=== PATIENT | female | born 1950 | race Caucasian/White ===

== ENCOUNTER 2017-02-21 08:18 | Observation (INO) | payer BC ==
[2017-02-21] VITALS (9 sets, daily range): BP systolic 99–133; BP diastolic 50–62; PULSE 61–88; RESP 16–18; TEMP 97.3–97.8; O2SAT 94–100
[~2017-02-21] VITALS: Ht 162.6 cm; Wt 55.2 kg
[2017-02-21] MEDS ORDERED: SODIUM CHLOR 0.9% 250 ML INJ 250 ML IV ONE (08:45)
[2017-02-21] MEDS ORDERED: ONDANSETRON HCL 4 MG/2 ML VIAL IV PUSH ONE ×2 (08:45→11:39)
[2017-02-21] MEDS ORDERED: MORPHINE SULFATE 4 MG/ML INJ IV PUSH ONE (08:45)
--- NOTE | 2017-02-21 08:50 | RADHPO ---
EXAM DATE/TIME: 02/21/2017 08:43 [facility] COMPARISON: No previous studies available for comparison. INDICATIONS : Right wrist pain after falling. MEDICAL HISTORY : Osteoporosis. SURGICAL HISTORY : None. ENCOUNTER: Initial ACUITY: 2 days PAIN SCORE: 6/10 LOCATION: Right wrist FINDINGS: Three view examination of the right wrist demonstrates soft tissue swelling and distal radius fractur e with mild displacement. Ulna intact. Bony mineralization is normal. CONCLUSION: Mildly displaced distal radius fracture. Geo Lopez MD on February 21, 2017 at 8:48 Board Certified Radiologist. This report was verified electronically.
[2017-02-21] MEDS ORDERED: AMLO10TA2 PO (08:54)
[2017-02-21] MEDS ORDERED: MULTTAB27 PO (08:54)
[2017-02-21] MEDS ORDERED: FOLI1CAP7 PO (08:54)
[2017-02-21] MEDS ORDERED: FOSA70TA PO (08:54)
[2017-02-21] MEDS ORDERED: METO25TA3 PO (08:54)
[2017-02-21] MEDS ORDERED: IBUP200T2 PO (08:54)
[2017-02-21] MEDS ORDERED: calicum PO (08:54)
[2017-02-21] MEDS ORDERED: TYLE325T PO (08:54)
[2017-02-21] MEDS ORDERED: PROPOFOL 200 MG/20 ML AMP IV ONE ×2 (09:00→11:39)
[2017-02-21] MEDS ORDERED: NORC5TAB PO (09:34)
--- NOTE | 2017-02-21 09:34 | PD ---
Physical Exam Date Seen by Provider: February 21, 2017 Time Seen by Provider: 09:32 Narrative The patient is a 66-year-old female who is initially seen by Dr. Thornton, please refer to initial history, physical, diagnostic evaluation, and treatment modality plan. I was asked to provide conscious sedation for right wrist reduction. Data Data Last Documented VS Vital Signs Date Time Temp Pulse Resp B/P Pulse Ox O2 Delivery O2 Flow Rate FiO2 02/21/17 09:30 16 02/21/17 09:15 99 2.00 02/21/17 08:24 97.8 68 100/52 Orders Sodium Chlor 0.9% 250 Ml Inj (Ns 250 Ml (02/21/17 08:45) Morphine Inj (Morphine Inj) (02/21/17 08:45) Ondansetron Inj (Zofran Inj) (02/21/17 08:45) Wrist, Complete ([id number]) (02/21/17 08:34) Consent (02/21/17 08:52) Propofol 200 Mg/20 Ml Inj (Diprivan 200 (02/21/17 09:00) Wrist, Limited (Ap&Lat) (02/21/17 09:29) MDM Medical Record Reviewed: Yes Supervised Visit with DAYSI: No Interpretation(s) Last Impressions Wrist X-Ray 02/21/17 0834 Signed Impressions: Service Date/Time: Tuesday, February 21, 2017 08:43 - CONCLUSION: Mildly displaced distal radius fracture. Geo Lopez MD Differential Diagnosis Differential diagnosis includes fracture, dislocation, contusion, hematoma. Narrative Course The patient was initially evaluated by the previous physician, please refer to the initial history, physical, diagnostic evaluation, treatment modality plan. I was asked to provide conscious sedation. The patient was placed on oxygen via nasal cannula, end-tidal CO2, cardiac telemetry monitoring, and with respiratory therapy, nursing staff, emergency medicine surveillance camera technician, and Dr. Thornton at bedside, the right wrist was reduced with conscious sedation. The patient was provided 100 mg of propofol with IV fluids. The patient tolerated the procedure without difficulty. There was no obvious complications. Procedures Procedure Narrative After the risks and benefits were discussed the following procedure was performed: MODERATE SEDATION: The patient was placed on a marine welder and pulse oximetry. An ambu bag and suction was immediately available at bedside. The patient was monitored by the nurse. Oxygen saturation, heart rate and blood pressure were monitored. Procedural sedation was acheived using 100 mg propofol. The patient was observed until awake and alert. Procedural Sedation time in attendance was 20 minutes. Diagnosis Primary Impression: Right wrist fracture Qualified Code: S62.101A - Right wrist fracture, closed, initial encounter Condition: Stable Fuad Pineda MD February 21, 2017 09:34
--- NOTE | 2017-02-21 09:35 | PD ---
HPI . Right wrist injury Chief Complaint: Musculoskeletal Complaint Time Seen by Provider: 08:32 Travel History International Travel<30 days: No Contact w/Intl Traveler<30days: No Traveled to known affect area: No History of Present Illness HPI Patient suffered a trip and fall last night about 9:00. She landed on an extended right hand. She states that she iced it through the night and then presented to us this morning for treatment. She denies any other associated injuries. She rates her pain as 5/10. Pain is exacerbated by movement. Pain was relieved with ice. PFSH Past Medical History Arthritis: Yes Cardiovascular Problems: Yes (HTN) Hypertension: Yes Tetanus Vaccination: < 5 Years Influenza Vaccination: No ?: Not Menopausal: Yes Tubal Ligation: Yes Past Surgical History Appendectomy: Yes Tonsillectomy: Yes Social History Alcohol Use: Yes (occas. mix drinks) Tobacco Use: Yes (1 ppd of cigs) Substance Use: No Allergies-Medications (Allergen,Severity, Reaction): Coded Allergies: No Known Allergies (Unverified , 02/21/17) Reported Meds & Prescriptions Reported Meds & Active Scripts Active [place] (Hydrocodone-Acetaminophen) 5-325 mg Tab 1-2 Tab PO Q6H PRN Reported Tylenol (Acetaminophen) 325 Mg Tab 650 Mg PO BID PRN Ibuprofen 200 Mg Tab 200 Mg PO BID PRN Multi-Day Vitamins (Multiple Vitamin) 1 Tab Tab 1 Tab PO DAILY [calicum] 600 Mg PO DAILY Folic Acid 800 Mcg Cap 800 Mcg PO DAILY Fosamax (Alendronate Sodium) 70 Mg Tab 70 Mg PO Q7D Metoprolol Tartrate 25 Mg Tab 25 Mg PO BID Amlodipine (Amlodipine Besylate) 10 Mg Tab 10 Mg PO DAILY Review of Systems Except as stated in HPI: all other systems reviewed are Neg Physical Exam Narrative GENERAL: Awake and alert and in no acute distress. SKIN: Warm and dry. HEAD: Atraumatic. Normocephalic. She is able to open her mouth fully and the uvula can be seen in its entirety. EYES: Pupils equal and round. NECK: Trachea midline. She has good flexion and extension of her neck. CARDIOVASCULAR: Regular rate and rhythm. RESPIRATORY: No accessory muscle use. MUSCULOSKELETAL: Deformity of the right wrist. Normal movement of the fingers. Normal capillary refill. NEUROLOGICAL: Awake and alert. No obvious cranial nerve deficits. Motor grossly within normal limits. Normal speech. PSYCHIATRIC: Appropriate mood and affect; insight and judgment normal. Data Data Last Documented VS Vital Signs Date Time Temp Pulse Resp B/P Pulse Ox O2 Delivery O2 Flow Rate FiO2 02/21/17 09:58 61 16 99/53 98 Room Air 02/21/17 09:15 2.00 02/21/17 08:24 97.8 Orders Sodium Chlor 0.9% 250 Ml Inj (Ns 250 Ml (02/21/17 08:45) Morphine Inj (Morphine Inj) (02/21/17 08:45) Ondansetron Inj (Zofran Inj) (02/21/17 08:45) Wrist, Complete ([id number]) (02/21/17 08:34) Consent (02/21/17 08:52) Propofol 200 Mg/20 Ml Inj (Diprivan 200 (02/21/17 09:00) Wrist, Limited (Ap&Lat) (02/21/17 09:29) Sodium Chlorid 0.9% 500 Ml Inj (Ns 500 M (02/21/17 09:45) MDM Medical Decision Making Medical Screen Exam Complete: Yes Emergency Medical Condition: Yes Differential Diagnosis Differential diagnosis of extremity trauma includes but is not limited to fracture, sprain or strain, dislocation, contusion Narrative Course Patient presents with an injury to the right wrist. She has an obvious fracture by exam. Last Impressions Wrist X-Ray 02/21/1734 Signed Impressions: Service Date/Time: Tuesday, February 21, 2017 08:43 - CONCLUSION: Mildly displaced distal radius fracture. Geo Lopez MD The x-ray was independently viewed by me. Procedures Procedure Narrative Conscious sedation and reduction were assisted by Dr. Pineda who handled the conscious sedation. Following identification of the correct patient and the correct extremity, the patient was sedated. The fracture was then reduced using traction/countertraction. Splint was applied. She had normal capillary refill of her fingers following the splint application. Postreduction film is pending. She tolerated this procedure well without complication. Physician Communication Physician Communication I spoke with Dr. Choudhury. He has given the patient the option of being transferred to [facility] for operative repair this weekend versus an elective outpatient procedure. The patient has chosen transferred to [facility]. Dr. Hernandez will admit. Diagnosis Primary Impression: Right wrist fracture Qualified Code: S62.101A - Right wrist fracture, closed, initial encounter Admitting Information Admitting Physician Requests: Admit Patient Instructions: General Instructions, RICE Therapy (ED), Wrist Fracture in Adults (DC) Med/Other Pt SpecificInfo: Prescription(s) given Condition: Stable Clair Thornton MD February 21, 2017 09:35
[2017-02-21] MEDS ORDERED: SODIUM CHLORID 0.9% 500 ML INJ 500 ML IV ONE (09:45)
--- NOTE | 2017-02-21 09:50 | RADHPO ---
EXAM DATE/TIME: 02/21/2017 09:31 [facility] COMPARISON: No previous studies available for comparison. INDICATIONS : Post reduction MEDICAL HISTORY : Osteoporosis. SURGICAL HISTORY : None. ENCOUNTER: Subsequent ACUITY: 1 day PAIN SCORE: 0/10 LOCATION: Right wrist FINDINGS: Two view examination of the right wrist demonstrates casted views of distal radius fracture. Minimal improvement of alignment. Soft tissue swelling. CONCLUSION: Slight improvement of alignment of distal radius fracture. Geo Lopez MD on February 21, 2017 at 9:48 Board Certified Radiologist. This report was verified electronically.
[2017-02-21] MEDS ORDERED: ONDANSETRON HCL 4 MG/2 ML VIAL IV PUSH PRN (10:15)
--- NOTE | 2017-02-21 10:27 | HHI.HP ---
[facility] Physician Sarbjit Mac MD Admission Diagnosis right wrist fracture Diagnoses: (1) Right wrist fracture Diagnosis: Principal Chief Complaint: pain to the right wrist after a fall Travel History International Travel<30 Days: No Contact w/Intl Traveler <30 Da: No Traveled to Known Affected Are: No History of Present Illness patient is a 66 y/o female with history of hypertension who presented to ER with worsening pain and swelling of the right wrist. she says that she fell last night after she was taking out the garbage. she landed on her right wrist .she put some ice on the wrist but the pain and swelling got worse over night which made her to come to ER today. she denies any head trauma, loss of consciousness, any prodromal symptoms before the fall or any other injuries. pain was moderate at the time of my evaluation. she denies any other symptoms. Review of Systems Musculoskeletal: COMPLAINS OF: Joint pain (right wrist) Past Family Social History Past Medical History hypertension Past Surgical History tonsillectomy appendectomy tubal ligation Reported Medications Tylenol (Acetaminophen) 325 Mg Tab 650 Mg PO BID PRN Ibuprofen 200 Mg Tab 200 Mg PO BID PRN Multi-Day Vitamins (Multiple Vitamin) 1 Tab Tab 1 Tab PO DAILY [calicum] 600 Mg PO DAILY Folic Acid 800 Mcg Cap 800 Mcg PO DAILY Fosamax (Alendronate Sodium) 70 Mg Tab 70 Mg PO Q7D Metoprolol Tartrate 25 Mg Tab 25 Mg PO BID Amlodipine (Amlodipine Besylate) 10 Mg Tab 10 Mg PO DAILY Allergies: Coded Allergies: No Known Allergies (Unverified , 02/21/17) Active Ordered Medications Current Medications Sodium Chloride (NS 250 ml Inj) 250 ml @ 250 mls/hr BOLUS ONCE IV Last administered on 02/21/17 09:14; Start 02/21/17 at 08:45; Stop 02/21/17 at 09:44 ; Status DC Morphine Sulfate (Morphine Inj) 4 mg ONCE ONCE IV PUSH Last administered on 09:15; Start 02/21/17 at 08:45; Stop 02/21/17 at 08:46; Status DC Ondansetron HCl (Zofran Inj) 4 mg ONCE ONCE IV PUSH Last administered on 09:14; Start 02/21/17 at 08:45; Stop 02/21/17 at 08:46; Status DC Propofol 100 mg 100 mg ONCE ONCE IV Last administered on 02/21/17 09:15; Start 02/21/17 at 09:00; Stop 02/21/17 at 09:01; Status DC Sodium Chloride (NS 500 ml Inj) 500 ml @ 500 mls/hr BOLUS ONCE IV Last administered on 02/21/17 09:46; Start 02/21/17 at 09:45; Stop 02/21/17 at 10:44 Family History diabetes in brother. Social History smokes a pack a day- drinks occasionally. Physical Exam Vital Signs Vital Signs Date Time Temp Pulse Resp B/P Pulse Ox O2 Delivery O2 Flow Rate FiO2 02/21/17 09:58 61 16 99/53 98 Room Air 02/21/17 09:45 62 16 02/21/17 09:30 16 02/21/17 09:15 99 2.00 02/21/17 08:45 16 02/21/17 08:24 97.8 68 16 100/52 100 Physical Exam GENERAL: This is a well-nourished, well-developed patient, in no apparent distress. SKIN: No rashes, ecchymoses or lesions. Cool and dry. HEAD: Atraumatic. Normocephalic. No temporal or scalp tenderness. EYES: Pupils equal round and reactive. Extraocular motions intact. No scleral icterus. No injection or drainage. ENT: Nose without bleeding, purulent drainage or septal hematoma. Throat without erythema, tonsillar hypertrophy or exudate. Uvula midline. Airway patent. NECK: Trachea midline. No JVD or lymphadenopathy. Supple, nontender, no meningeal signs. CARDIOVASCULAR: Regular rate and rhythm without murmurs, gallops, or rubs. RESPIRATORY: Clear to auscultation. Breath sounds equal bilaterally. No wheezes , rales, or rhonchi. GASTROINTESTINAL: Abdomen soft, non-tender, nondistended. No hepato-splenomegaly , or palpable masses. No guarding. MUSCULOSKELETAL: right wrist covered with clean dressing. NEUROLOGICAL: Awake and alert. Cranial nerves II through XII intact. Motor and sensory grossly within normal limits. Five out of 5 muscle strength in all muscle groups. Normal speech. Imaging Last Impressions Wrist X-Ray 02/21/17 0970 Signed Impressions: Service Date/Time: Tuesday, February 21, 2017 09:31 - CONCLUSION: Slight improvement of alignment of distal radius fracture. Geo Lopez MD Assessment and Plan Assessment and Plan A/P - right wrist fracture after a fall- s/p closed reduction in ER keep NPO- continue with pain control and consult ortho. -hypertension; BP on low side- hold BP meds for now and gradually start back on her home regimen if BP stable. -DVT prophylaxis- SCD's- pending the ortho evaluation. Discussed Condition With ER physician and the patient. Physician Certification 2 Midnight Certification Type: Admission for Inpatient Services Order for Inpatient Services The services are ordered in accordance with Medicare regulations or non- Medicare payer requirements, as applicable. In the case of services not specified as inpatient-only, they are appropriately provided as inpatient services in accordance with the 2-midnight benchmark. Estimated LOS (days): 2 days is the estimated time the patient will need to remain in the hospital, assuming treatment plan goals are met and no additional complications. Post-Hospital Plan: Home Problem Qualifiers (1) Right wrist fracture: Qualified Code: S62.101A - Right wrist fracture, closed, initial encounter Kenji Hernandez MD February 21, 2017 10:27
[2017-02-21] MEDS ORDERED: SODIUM CHLOR 0.9% 1000 ML INJ 1,000 ML IV SCH (10:30)
[2017-02-21 10:58] LABS: AUTOMATED NEUTROPHIL # 7.6 TH/MM3 (1.8-7.7); BASOPHIL % 0.4 % (0.0-2.0); EOSINOPHIL # 0.2 TH/MM3 (0-0.4); EOSINOPHIL % 2.2 % (0.0-4.0); HEMATOCRIT 35.6 % (35.0-46.0); HEMO FLAGS DIFF FINAL; LYMPH % 9.6 % (9.0-44.0); LYMPHOCYTE # 0.9 TH/MM3 (1.0-4.8); MEAN CELL VOLUME 97.8 FL (80.0-100.0); MEAN CORPUSCULAR HEMOGLOBIN 33.4 PG (27.0-34.0); MEAN CORPUSCULAR HGB CONC 34.2 % (32.0-36.0); MONO % 7.9 % (0.0-8.0); NEUT % 79.9 % (16.0-70.0); PLATELET COUNT 246 TH/MM3 (150-450); RED BLOOD COUNT 3.64 MIL/MM3 (4.00-5.30); RED CELL DISTRIBUTION WIDTH 12.8 % (11.6-17.2); WHITE BLOOD COUNT 9.5 TH/MM3 (4.0-11.0)
[2017-02-21 11:07] LABS: POTASSIUM 4.1 MEQ/L (3.5-5.1)
[2017-02-21 11:10] LABS: BICARBONATE 27.2 MEQ/L (21.0-32.0)
[2017-02-21 11:11] LABS: APTT (PATIENT) 23.9 SEC (24.3-30.1); PROTHROMBIN TIME - PATIENT 10.9 SEC (9.8-11.6)
[2017-02-21] MEDS: HYDROmorphone HCL PF 1 MG/ML VIAL IV PUSH PRN ×2 (11:19→16:08)
[2017-02-21] MEDS ORDERED: GENTAMICIN SULFATE 80 MG/2 ML VIAL ONE (19:36)
--- NOTE | 2017-02-21 19:45 | PD.CONS ---
cc: Dick Choudhury MD HPI Service [facility] Surgeons Consult Requested By ED staff Reason for Consult Right wrist fracture Primary Care Physician Sarbjit Mac MD Admission Diagnosis right wrist fracture Diagnoses: (1) Fracture of right distal radius Chief Complaint: Right wrist pain History of Present Illness This patient is a 66 y/o female with history of hypertension who presented to ER with worsening pain and swelling of the right wrist. She says that she fell last night after she was taking out the garbage. She landed on an outstretched right upper extremity. She put some ice on the wrist but the pain and swelling got worse over night which made her to come to ER today. She denies any head trauma, loss of consciousness, any prodromal symptoms before the fall or any other injuries. Her pain is controlled at the present time. She denies other extremity complaint. Review of Systems Reviewed and well outlined in the medical record Past Family Social History Past Medical History hypertension Past Surgical History tonsillectomy appendectomy tubal ligation Allergies: Coded Allergies: No Known Allergies (Unverified , 02/21/17) Active Ordered Medications Current Medications Medications (Trade) Dose Ordered Sig/Jyoti Route Start Time Stop Time Status Last Admin (Dilaudid Pf Inj) 0.5 mg Q4H PRN IV PUSH 02/21/17 10:15 02/21/17 16:08 Ondansetron HCl 4 mg 4 mg Q8HR PRN IV PUSH 02/21/17 10:15 (NS 1000 ml Inj) 1,000 ml @ 100 mls/hr Q10H IV 02/21/17 10:30 02/21/17 10:33 Reported Meds & Active Scripts Active Reported Tylenol (Acetaminophen) 325 Mg Tab 650 Mg PO BID PRN Ibuprofen 200 Mg Tab 200 Mg PO BID PRN Multi-Day Vitamins (Multiple Vitamin) 1 Tab Tab 1 Tab PO DAILY [calicum] 600 Mg PO DAILY Folic Acid 800 Mcg Cap 800 Mcg PO DAILY Fosamax (Alendronate Sodium) 70 Mg Tab 70 Mg PO Q7D Metoprolol Tartrate 25 Mg Tab 25 Mg PO BID Amlodipine (Amlodipine Besylate) 10 Mg Tab 10 Mg PO DAILY Family History diabetes in brother. Social History smokes a pack a day- drinks occasionally. Physical Exam Vital Signs Vital Signs Date Time Temp Pulse Resp B/P Pulse Ox O2 Delivery O2 Flow Rate FiO2 02/21/17 18:00 98.2 63 20 106/54 96 02/21/17 18:00 63 02/21/17 16:00 97.3 63 16 110/54 94 02/21/17 12:30 97.5 63 16 110/53 95 02/21/17 11:37 78 16 106/50 99 02/21/17 11:17 88 18 103/62 97 Room Air 02/21/17 09:58 61 16 99/53 98 Room Air 02/21/17 09:45 62 16 02/21/17 09:30 16 02/21/17 09:15 99 2.00 02/21/17 08:45 16 02/21/17 08:24 97.8 68 16 100/52 100 Physical Exam The right upper extremity is in a splint. She moves her fingers freely and has good capillary refill and sensation. She moves her left upper extremity and both lower extremities without restriction or pain. Neurologically no focal deficit. Laboratory Laboratory Tests Test 02/21/17 10:45 White Blood Count 9.5 Red Blood Count 3.64 Hemoglobin 12.2 Hematocrit 35.6 Mean Corpuscular Volume 97.8 Mean Corpuscular Hemoglobin 33.4 Mean Corpuscular Hemoglobin 34.2 Concent Red Cell Distribution Width 12.8 Platelet Count 246 Mean Platelet Volume 7.7 Neutrophils (%) (Auto) 79.9 Lymphocytes (%) (Auto) 9.6 Monocytes (%) (Auto) 7.9 Eosinophils (%) (Auto) 2.2 Basophils (%) (Auto) 0.4 Neutrophils # (Auto) 7.6 Lymphocytes # (Auto) 0.9 Monocytes # (Auto) 0.8 Eosinophils # (Auto) 0.2 Basophils # (Auto) 0.0 CBC Comment DIFF FINAL Differential Comment Prothrombin Time 10.9 Prothromb Time International 1.0 Ratio Activated Partial 23.9 Thromboplast Time Sodium Level 143 Potassium Level 4.1 Chloride Level 107 Carbon Dioxide Level 27.2 Anion Gap 9 Blood Urea Nitrogen 14 Creatinine 0.57 Estimat Glomerular Filtration 107 Rate Random Glucose 106 Calcium Level 8.6 Result Diagram: 02/21/17 1045 02/21/17 1045 Imaging Last 48 hours Impressions Wrist X-Ray 02/21/17 0929 Signed Impressions: Service Date/Time: Tuesday, February 21, 2017 09:31 - CONCLUSION: Slight improvement of alignment of distal radius fracture. Geo Lopez MD Wrist X-Ray 02/21/17 0834 Signed Impressions: Service Date/Time: Tuesday, February 21, 2017 08:43 - CONCLUSION: Mildly displaced distal radius fracture. Geo Lopez MD Assessment & Plan Problem List: (1) Fracture of right distal radius Assessment and Plan The findings were discussed. The options for treatment both operative and nonoperative were discussed. Recommendations are for internal fixation based upon the comminuted displaced and angulated fracture pattern. The nature of the procedure, the risks, the expected benefits, as well as the postoperative expectations were discussed with her in detail. In addition, the alternatives to treatment and risks of same were discussed. The patient acknowledges full understanding and agrees to it. Dick Choudhury MD February 21, 2017 19:45
--- NOTE | 2017-02-21 21:37 | PD.OP ---
cc: Dick Choudhury MD Operative Report Date of Surgery: February 21, 2017 Preoperative Diagnosis: (1) Fracture of right distal radius Postoperative Diagnosis: (1) Fracture of right distal radius Procedure: ORIF right distal radius with volar plating Implants used: Synthes Anesthesia: Gen. Surgeon: Dick Choudhury Blind Hanger(s): Ruthie Vernon PA-C ([place]) The surgical procedure was assisted by my physician's personal banking assistant. Her presence was necessary throughout the case for manipulation and positioning of the surgical extremity. My PA was assisting me throughout the duration of this procedure. The skill set of the physician personal banking assistant was medically necessary to complete this procedure. During the surgical case the surgical training specialist was working at the back table and the physician personal banking assistant was directly assisting me. Operation and Findings: Indications: This 66-year-old female fell last night injuring her right wrist. She sought medical treatment today at [facility]. X-rays revealed a displaced comminuted dorsally angulated distal radius fracture. Given the alternatives of the treatment she presents for ORIF. Procedure and findings: The patient was taken to the operative suite and after undergoing an adequate level of general anesthesia was kept supine on the operating table. Preoperative antibiotics consisted of Ancef 2 g IV. The right upper extend it was then prepped and draped in usual sterile fashion with Betadine. A standard FCR approach to the volar aspect of the wrist was made with incision extending from the wrist crease. This was carried down to skin and subcutaneous tense tissue with a knife. The flexor carpi radialis tendon was identified and the sheath entered. The tendon was retracted and the floor of the sheath was incised. The fracture site was then easily identified. Later was partially torn. Subperiosteal dissection was carried out exposing the fracture site. Fracture was easily reduced. A volar plate was applied. A single cortical screw was placed proximal to the fracture site in an oblong hole to allow further manipulation of the plate. A distal K wire was placed for positioning. Distal locking screws were placed and 2 rows. Proximal cortical fixation was accomplished with 3 screws proximal to the fracture site. The position of the fracture reduction and placement of the internal fixation were checked in both the AP and lateral planes with the C-arm. The wound was thoroughly irrigated. The tourniquet was released and hemostasis obtained. Incision was closed in layers utilizing 2-0 Vicryl suture on the subcutaneous tissue and 4-0 nylon on the skin. Sterile dressings were applied, the patient was placed into a splint, awakened, transferred to hospital bed and taken to the recovery room in stable condition. Estimated blood loss: Minimal Complications: None Tourniquet time: 35 minutes Dick Choudhury MD February 21, 2017 21:37
--- NOTE | 2017-02-21 21:38 | RADRPT ---
EXAM DATE/TIME: 02/21/2017 20:44 [facility] COMPARISON: WRIST RIGHT LIMITED(AP & LAT), February 21, 2017, 9:31. INDICATIONS : Right wrist fracture open reduction internal fixation. MEDICAL HISTORY : Osteoporosis. SURGICAL HISTORY : None. ENCOUNTER: Initial ACUITY: 1 day PAIN SCORE: Non-responsive. LOCATION: Right wrist FINDINGS: 2 magnified C. arm spot views are centered over the right wrist. An orthopedic plate is seen involvin g the palmar cortex of the distal radius with multiple anchoring screws. Good alignment of the distal radial fracture. CONCLUSION: Limited images as detailed above. Scotty Wise Jr., MD on February 21, 2017 at 21:36 Board Certified Radiologist. This report was verified electronically.
[2017-02-21] MEDS ORDERED: SODIUM CHLORIDE 0.9% FLUSH 10 ML FLUSH IV FLUSH PRN (21:45)
[2017-02-21] MEDS ORDERED: Post-op Orders (for Pharmacy) MISC XX ONE (21:45)
[2017-02-21] MEDS ORDERED: ACETAMINOPHEN 325 MG TAB PO PRN (21:45)
[2017-02-21] MEDS ORDERED: diphenhydrAMINE HCL 25 MG CAP PO PRN (21:45)
[2017-02-21] MEDS ORDERED: ZOLPIDEM TARTRATE 5 MG TAB PO PRN (21:45)
[2017-02-21] MEDS ORDERED: MORPHINE SULFATE 4 MG/ML INJ IV PUSH PRN (21:45)
[2017-02-21] MEDS ORDERED: MAGNESIUM HYDROXIDE SUSP 30 ML CUP PO PRN (21:45)
[2017-02-21] MEDS ORDERED: *morphine SULFATE 8 MG/ML PERIprocedure ONLY ONE ×2 (21:59→22:09)
[2017-02-21] MEDS ORDERED: DO NOT ADM ANY ANTICOAGULANT DRUGS PRN (22:00)
[2017-02-21] MEDS ORDERED: MIDAZOLAM HCL 2 MG/2 ML VIAL ONE (22:03)
[2017-02-21] MEDS: DEXT 5%-NACL 0.45% 1000 ML INJ 1,000 ML IV SCH (22:15)
[2017-02-22] MEDS: oxyCODONE/ACETAMINOPHEN 5 MG/325 MG TAB PO PRN ×5 (00:22→16:06)
[2017-02-22 04:00] VITALS: BP 105/62; PULSE 65; RESP 20; TEMP 97.4; O2SAT 98
[2017-02-22] MEDS: DEXT 5%-NACL 0.45% 1000 ML INJ 1,000 ML IV SCH ×2 (07:21→11:46)
[2017-02-22 07:40] VITALS: BP 104/50; PULSE 75; RESP 16; TEMP 96.9; O2SAT 97
[2017-02-22] MEDS ORDERED: SODIUM CHLORIDE 0.9% FLUSH 10 ML FLUSH IV FLUSH SCH (09:00)
[2017-02-22 09:10] VITALS: O2SAT 96
--- NOTE | 2017-02-22 10:41 | HHI.PR ---
Subjective Remarks Feels better. Pain is controlled by meds. No cp, sob, n/v/d/c. Feesl comfortable to go home today. Objective Vitals Vital Signs Date Time Temp Pulse Resp B/P Pulse Ox O2 Delivery O2 Flow Rate FiO2 02/22/17 07:53 Room Air 02/22/17 07:40 96.9 75 16 104/50 97 02/22/17 05:51 18 02/22/17 04:00 97.4 65 20 105/62 98 02/22/17 01:50 Nasal Cannula 2.00 02/21/17 22:54 97.7 75 16 133/60 96 02/21/17 22:30 99.0 76 16 127/56 99 Nasal Cannula 2 02/21/17 22:15 77 10 125/58 100 Nasal Cannula 2 02/21/17 22:00 77 19 133/61 99 Nasal Cannula 3 02/21/17 21:55 81 16 134/63 100 Nasal Cannula 3 02/21/17 21:54 98.9 79 15 132/68 100 Nasal Cannula 3 02/21/17 20:00 98.2 63 20 106/54 96 02/21/17 18:00 98.2 63 20 106/54 96 02/21/17 18:00 63 02/21/17 16:00 97.3 63 16 110/54 94 02/21/17 12:30 97.5 63 16 110/53 95 02/21/17 11:37 78 16 106/50 99 02/21/17 11:17 88 18 103/62 97 Room Air I/O 02/21/17 02/21/17 02/21/17 02/22/17 02/22/17 02/22/17 07:00 15:00 23:00 07:00 15:00 23:00 Intake Total 1300 ml 981 ml Output Total 50 ml Balance 1250 ml 981 ml Intake Oral 0 ml 240 ml IV Total 300 ml 741 ml Other 1000 ml Output Urine Total 0 ml Estimated Blood Loss 50 ml Other 0 ml # Voids 3 2 # Bowel Movements 0 0 Result Diagram: 02/21/17 1045 02/21/17 1045 Imaging Last Impressions Wrist X-Ray 02/21/1757 Signed Impressions: Service Date/Time: Tuesday, February 21, 2017 09:31 - CONCLUSION: Slight improvement of alignment of distal radius fracture. Geo F. Tocci, MD Objective Remarks GENERAL: This is a well-nourished, well-developed patient, in no apparent distress. SKIN: No rashes, ecchymoses or lesions. Cool and dry. HEAD: Atraumatic. Normocephalic. No temporal or scalp tenderness. EYES: Pupils equal round and reactive. Extraocular motions intact. No scleral icterus. No injection or drainage. ENT: Nose without bleeding, purulent drainage or septal hematoma. Throat without erythema, tonsillar hypertrophy or exudate. Uvula midline. Airway patent. NECK: Trachea midline. No JVD or lymphadenopathy. Supple, nontender, no meningeal signs. CARDIOVASCULAR: Regular rate and rhythm without murmurs, gallops, or rubs. RESPIRATORY: Clear to auscultation. Breath sounds equal bilaterally. No wheezes , rales, or rhonchi. GASTROINTESTINAL: Abdomen soft, non-tender, nondistended. No hepato-splenomegaly , or palpable masses. No guarding. MUSCULOSKELETAL: Right wrist covered in splint NEUROLOGICAL: Awake and alert. Cranial nerves II through XII intact. Motor and sensory grossly within normal limits. Five out of 5 muscle strength in all muscle groups. Normal speech. Procedures ORIF right distal radius with volar plating 02/[address] Kei casillas A/P Problem List: (1) Fracture of right distal radius ICD Code: S52.501A Status: Acute Assessment and Plan Right wrist fracture after a fall- s/p closed reduction in ER S/p ORIF right distal radius with volar plating 02/[address] Kei casillas Hypertension; BP on low side- hold BP meds for now and gradually start back on her home regimen if BP stable. -DVT prophylaxis- SCD's- Discussed Condition With patient,family at bedside. Stable medically. Restart BP meds if BP permits. Patient is on pain meds, an might lower BP. Rosalia Ortez MD February 22, 2017 10:41
[2017-02-22 11:51] VITALS: BP 114/64; PULSE 71; RESP 16; TEMP 96.8; O2SAT 97
--- NOTE | 2017-02-22 12:56 | PD.ORT.PN ---
Subjective Post Op Day #: 1 Subjective Remarks Patient awake and alert, has walked several times around halls. Admits right wrist pain well controlled. Ready for discharge to home today. Objective Vitals Vital Signs Date Time Temp Pulse Resp B/P Pulse Ox O2 Delivery O2 Flow Rate FiO2 02/22/17 11:51 96.8 71 16 114/64 97 02/22/17 11:45 16 02/22/17 09:10 96 21 02/22/17 07:53 Room Air 02/22/17 07:40 96.9 75 16 104/50 97 02/22/17 04:00 97.4 65 20 105/62 98 02/22/17 01:50 Nasal Cannula 2.00 02/21/17 22:54 97.7 75 16 133/60 96 02/21/17 22:30 99.0 76 16 127/56 99 Nasal Cannula 2 02/21/17 22:15 77 10 125/58 100 Nasal Cannula 2 02/21/17 22:00 77 19 133/61 99 Nasal Cannula 3 02/21/17 21:55 81 16 134/63 100 Nasal Cannula 3 02/21/17 21:54 98.9 79 15 132/68 100 Nasal Cannula 3 02/21/17 20:00 98.2 63 20 106/54 96 02/21/17 18:00 98.2 63 20 106/54 96 02/21/17 18:00 63 02/21/17 16:00 97.3 63 16 110/54 94 I/O 02/21/17 02/21/17 02/21/17 02/22/17 02/22/17 02/22/17 07:00 15:00 23:00 07:00 15:00 23:00 Intake Total 1300 ml 981 ml Output Total 50 ml Balance 1250 ml 981 ml Intake Oral 0 ml 240 ml IV Total 300 ml 741 ml Other 1000 ml Output Urine Total 0 ml Estimated Blood Loss 50 ml Other 0 ml # Voids 3 2 # Bowel Movements 0 0 Result Diagram: 02/21/17 1045 02/21/17 1045 Imaging Last Impressions Wrist X-Ray 02/21/17928 Signed Impressions: Service Date/Time: Tuesday, February 21, 2017 09:31 - CONCLUSION: Slight improvement of alignment of distal radius fracture. Geo F. Tocci, MD Procedures ORIF right distal radius with volar plating Objective Remarks RUE: splint and dressing dry and intact. freely able to move distal digits, sensation intact, no olecranon pain, NVI Assessment & Plan Ortho Post Op Day #: 1 Problem List: (1) Fracture of right distal radius Assessment and Plan ORIF right distal radius with volar plating POD #1 Clear for discharge from an orthopedic standpoint. Pain medication on chart. F/U [address] Choudhury. Non w/b RUE. Ruthie Vernon February 22, 2017 12:55
--- NOTE | 2017-02-22 13:17 | HHI.DCPOC ---
Discharge Care Plan Goals to Promote Your Health * To prevent worsening of your condition and complications * To maintain your health at the optimal level Directions to Meet Your Goals Take your medications as prescribed Follow your dietary instruction Follow activity as directed Keep your appointments as scheduled Take your immunizations and boosters as scheduled If your symptoms worsen call your PCP, if no PCP go to Urgent Care Center or Emergency Room Smoking is Dangerous to Your Health. Avoid second hand smoke Call the 24-hour hour crisis hotline for domestic abuse at Rosalia Ortez MD February 22, 2017 13:17
[2017-02-22] MEDS ORDERED: PERC5TAB12 PO (14:50)
--- NOTE | 2017-02-22 16:07 | EKG ---
Date Performed: 02/21/2017 Time Performed: 17:04:57 PTAGE: 66 years EKG: SINUS BRADYCARDIA BORDERLINE ECG NO PREVIOUS TRACING DOCTOR: Dick Moses Interpretating Date/Time 02/22/2017 16:06:53
== END 2017-02-22 16:25 | disposition home or self-care (01) ==
LOC: PHED 08:18 → INTOOBSV 10:06 → PHEDA 10:06 → N06B 12:13 → UNDODISIN 02-22 16:25
PROVIDERS: ADMIT Hospitalist; ATTEND Hospitalist
DX: S52.501A Unspecified fracture of the lower end of right radius, initial encounter for closed fracture (principal); I10 Essential (primary) hypertension; F17.200 Nicotine dependence, unspecified, uncomplicated; W01.0XXA Fall on same level from slipping, tripping and stumbling without subsequent striking against object, initial encounter
CPT/HCPCS: 25605; 25607; 73100; 73110; 76000; 80048; 85025; 85610; 85730; 93005; 94150; 94770; 96361; 96374; 96375; 99285; C1713; G0378; J0690; J1170; J2250; J2270; J2405; J3010; J7030; J7040; J7050; J1580